=== PATIENT | male | born 1955 | race Caucasian/White ===

== ENCOUNTER 2022-05-09 10:41 | Outpatient (CLI) | payer MEDICARE, OTHER ==
[2022-05-09] MEDS ORDERED: Iopamidol-370 76% 500 ML 1 ML ONE (14:39)
== END 2022-05-09 10:42 | disposition home or self-care (01) ==
LOC: BICCT 10:41
PROVIDERS: ATTEND Physician Assistant Medical
DX: R63.4 Abnormal weight loss (principal); R68.81 Early satiety; N40.0 Benign prostatic hyperplasia without lower urinary tract symptoms; N20.0 Calculus of kidney; M48.07 Spinal stenosis, lumbosacral region; M43.17 Spondylolisthesis, lumbosacral region; K57.30 Diverticulosis of large intestine without perforation or abscess without bleeding
CPT/HCPCS: 74177; 82565

== ENCOUNTER 2022-05-09 12:04 | Outpatient (CLI) | payer MEDICARE, OTHER | END 2022-05-09 12:05 | disposition home or self-care (01) | LOC: RAD 12:04 | PROVIDERS: ATTEND Physician Assistant Medical | DX: R63.4 Abnormal weight loss (principal); R68.81 Early satiety | CPT/HCPCS: 71046; 74177; 82565 ==

== ENCOUNTER 2022-05-30 11:08 | Outpatient (CLI) | payer MEDICARE, OTHER | END 2022-05-30 11:09 | disposition home or self-care (01) | LOC: RAD 11:08 | PROVIDERS: ATTEND Psychiatry & Neurology Neurology | DX: R53.1 Weakness (principal); M47.812 Spondylosis without myelopathy or radiculopathy, cervical region | CPT/HCPCS: 72040 ==